=== PATIENT | male | born 1950 | race Caucasian/White ===

== ENCOUNTER → 2020-03-25 15:47 | Outpatient (CLI) | payer MEDICARE, OTHER, SELFPAY ==
[2020-03-25 16:50] LABS: Add Manual Diff / Slide Review NO; Basophils Absolute Auto 100 /uL (0-100); Basophils Percent Auto 1.4 % (0-2); Eosinophils Absolute Auto 100 /uL (0-450); Eosinophils Percent Auto 1.8 % (2-4); Hematocrit 40.9 % (41-53); Hemoglobin 13.8 g/dL (13.5-17.5); Lymphocytes Absolute Auto 1600 /uL (1100-4500); Lymphocytes Percent Auto 28.7 % (25-40); Mean Corpuscular HGB Conc 33.8 % (30-36); Mean Corpuscular Volume 88.8 fL (80-100); Monocytes Absolute Auto 300 /uL (0-900); Monocytes Percent Auto 5.6 % (3-14); Neutrophils Absolute Auto 3400 /uL (1500-7000); Neutrophils Percent Auto 62.5 % (50-75); Platelet Count 174 X10^3/uL (150-400); Red Blood Cell Count 4.61 X10^6/uL (4.5-5.9); Red Cell Distribution Width 16.5 % (11.6-14.8); White Blood Cell Count 5.4 X10^3/uL (4.5-11.0)
[2020-03-25 17:22] LABS: Carbon Dioxide 28 mmol/L (22-32); Chloride 102 mmol/L (98-107); HEMOLYSIS < 15 (0-50); Potassium 4.2 mmol/L (3.4-5.1); Sodium 136 mmol/L (137-145)
== END ==
PROVIDERS: PCP Family Medicine; Referring Provider Orthopaedic Surgery; Visit Provider Orthopaedic Surgery
DX: Z01.818 Encounter for other preprocedural examination (principal); Z01.812 Encounter for preprocedural laboratory examination
CPT/HCPCS: 36415; 80051; 85025; 93005

== ENCOUNTER → 2020-04-19 14:07 | Outpatient (CLI) | payer MEDICARE, OTHER, SELFPAY ==
[2020-04-20 07:53] LABS: COVID19 Sendout Not Detected (Not Detect)
== END ==
PROVIDERS: PCP Family Medicine; Visit Provider Physician Assistant
DX: Z01.818 Encounter for other preprocedural examination (principal)
CPT/HCPCS: 87635

== ENCOUNTER 2020-04-22 08:38 | Day surgery (SDC) | payer MEDICARE, OTHER, SELFPAY ==
[2020-04-17 08:50] VITALS: BMI 22.4
[2020-04-22] VITALS (18 sets, daily range): BP systolic 75–122; BP diastolic 54–85; PULSE 40–60; RESP 10–16; TEMP 35.7–36.5; O2SAT 97–100; BMI 22.4
[2020-04-22] MEDS: LACTATED RINGERS 1,000 ML 42 ML IV (09:48)
--- NOTE | 2020-04-22 10:14 | DI.RAD.S_ITS ---
PROCEDURE: XR PELVIS 1-2V INDICATIONS: POST OPERATIVE TOTAL HIP TECHNIQUE: 1 view of the lower pelvis acquired. COMPARISON: None. FINDINGS: Bones: Patient is status post total right hip arthroplasty, with hardware components in expected positions. The hip joint appears congruent. The visualized bony structures appear intact. Soft tissues: Overlying postoperative changes are noted. No suspicious soft tissue densities. IMPRESSION: Expected immediate postoperative appearance, status post total right hip arthroplasty. Dictated by: Ludwin Cobian M.D. on 04/22/2020 at 12:40 Approved by: Ludwin Cobian M.D. on 04/22/2020 at 12:41
--- NOTE | 2020-04-22 10:18 | PM.HP.1 ---
History of Present Illness History of Present Illness Date Patient Seen: 04/22/20 Time Patient Seen: 10:18 Chief complaint: Right Total Hip Arthroplasty Narrative: 69-year-old male admitted for elective right total hip arthroplasty. Patient History Medical History Elevated LDL cholesterol level (Acute) Surgical History History of arthroscopy of left shoulder (Acute 2018) History of vasectomy (1990) Family & Social History Social History: household members spouse Prior Living Arrangements House Safety & Behavioral: Feels Safe in Current Yes Environment Been Physically Hurt or No Threatened By a Person Suicidal Ideation Description None Suicide Plan Description No Plan Tobacco & Substance use: Tobacco type cigarettes Smoking Status Former smoker alcohol intake former Substance Use Type does not use Meds Home Medications and Allergies Home Medications Medication Instructions Recorded Confirmed Type No Known Home Medications 04/17/20 04/17/20 History Allergies Allergy/AdvReac Type Severity Reaction Status Date / Time aspirin [ASPIRIN] AdvReac Mild Increases Verified 04/22/20 09:21 fever. Review of Systems Review of Systems ROS: Yes All systems reviewed with the patient and are negative except as otherwise documented Exam Vital Signs (past 8 hours): - 04/22/20 09:31 Temperature 97.6 F Pulse Rate 52 L Respiratory Rate 16 Blood Pressure 122/85 Pulse Oximetry 100 Oxygen Delivery Method Room Air Narrative Exam Narrative: Patient is awake alert oriented and conversant. Afebrile and vital signs are stable. HEENT Normocephalic atraumatic Lungs clear to auscultation Heart regular rate rhythm Abdomen benign Extremities benign with the exception of right lower extremity with limited hip range of motion and pain on extremes of motion. Neurovascular examination is intact. Assessment & Plan Assessment & Plan narrative: 69-year-old male with severe right hip DJD. Plan right total hip arthroplasty. Informed consent obtained. COVID-19 COVID-19 status: Negative Result date/Date tested (Pos, Neg/Pending): 04/19/20
--- NOTE | 2020-04-22 10:19 | PM.PREOP ---
Pre-operative Note COVID-19 COVID-19 status: Negative Result date/Date tested (Pos, Neg/Pending): 04/19/20 Interval Note History & Physical reviewed/Exam performed by Physician: Yes Changes to H&P: No
[2020-04-22] MEDS: CEFAZOLIN 2 GM/100 ML FROZ.PIGGY IV ×2 (10:40→19:14)
--- NOTE | 2020-04-22 11:11 | SUR.OPER ---
Lateral on padded OR bed, head on pillow, gel axillary roll in place, bottom leg bent with gel pad under knee to foot, upper leg straight and supported with pillows. Upper arm supported by pillows and secured over bottom arm to padded arm board. Safety belt at hip, tape over blanket lower legs.
[2020-04-22] MEDS: TRANEXAMIC ACID 1,000 MG VIAL 2000 MG INJ ×2 (11:18→11:57)
[2020-04-22] MEDS: ROPIVACAINE 0.5% PF 20ML 60 ML, MORPHINE 4 MG, KETOROLAC 30 MG INJ (11:22)
--- NOTE | 2020-04-22 12:18 | P.OP_ITS ---
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 The patient has pain with activities and at rest, limited ambulation and activity tolerance, difficulties with ADLs, and failure of conservative treatment. We have discussed the nature of condition, treatment options, risks and benefits, and patient elects to proceed with total hip arthroplasty and gives informed consent. Surgeon: Clifton Mac Director Of Search Engine Marketing: Aayush Ridley Anesthesia Type: General and Spinal Operative Notes Closure Type: primary Specimen(s): none sent Prosthetic devices, grafts, tissues, transplants, or devices: Acetabulum: Zepeda and Nephew R3 acetabular component size 54 mm Femoral component: Zepeda and Nephew Anthology stem size 6 with standard offset Femoral head: 36 mm + 0 Oxinium Estimated Blood Loss (mL): 200 Blood products transfused: none Procedure in detail: After satisfaction induction of anesthetic, and administration of IV antibiotics, the patient was positioned in the lateral decubitus position with all bony prominences well padded and pelvic position secured using a hip hair clipper power positioning device. Right hip and lower extremity prepped and draped in the usual sterile fashion, 1st dose of intravenous tranexamic acid was administered, then a longitudinal incision was created centered over the greater trochanter and carried sharply through the skin and subcutaneous tissues down to the fascia kody which was divided longitudinally and retracted with a Charnley retractor. External rotators visualize, cut, tagged, and retracted posteriorly, then the capsule was cut in a T-type fashion with the corners tagged and retracted. Hip was dislocated and femoral neck cut made according to preoperative templating. Acetabular retractors then placed, and the acetabular labrum and osteophytes were excised. The acetabulum was then sequentially reamed to 53 mm with an excellent circumferential ream and fit with the trial. The trial component was removed and a permanent size 54 mm Zepeda and Nephew R3 acetabular component was selected, positioned, and impacted with satisfactory position and fixation achieved. Permanent liner was then inserted with the elevated lip directed posteriorly. Soft tissue then removed off the lateral femoral neck in the lateral neck was entered using a box osteotome. T- handled reamers placed down the canal followed by sequential broaching to 6 with the final broach left in place for trial reduction which demonstrated excellent leg length, range of motion, and stability characteristics with a 36 mm +0 trial ball. The trial and broach were removed, and a permanent size 6 Zepeda and Nephew Anthology stem was selected and inserted with excellent position and fixation achieved. Another trial reduction yielded the above characteristics so the trial ball was exchanged for a permanent 36 mm +0 Oxinium ball. The hip was irrigated and reduced and excellent leg length range of motion and stability characteristics were achieved and maintained. Periarticular tissues were infiltrated with ropivacaine, Toradol, and morphine. The hip was copiously irrigated, and the capsule repaired with #2 Ethibond, and the piriformis was repaired back to the greater trochanter with the same. Fascia kody closed with interrupted #1 Ethibond sutures, and the subcutaneous tissues were closed in 2 layers of 0 Vicryl and 2 0 Vicryl. Skin was closed with adrienne and sterile dressings applied. Second dose of tranexamic acid was administered intravenously, and the anesthetic was terminated. Complications: none Post-operative Condition: stable Disposition: PACU Plan for aftercare: Patient will be admitted to the acute care askew, and anticipate discharge on postop day 1 with follow-up in office in 10-14 days. Outpatient physical therapy will be arranged and patient will continue to obs erve posterior hip precautions. Patient will continue use of aspirin postoperatively for DVT prophylaxis..
[2020-04-22] MEDS: ACETAMINOPHEN 325 MG TABLET 650 MG PO ×2 (15:09→21:04)
--- NOTE | 2020-04-22 15:36 | PC.NURSE ---
Patient arrived from PACU to room 214, oriented to room and call light. VSS, denies pain. Bulky dressing to right hip CDI without drainage or bleeding noted. Calf scd's in place. Urinal and call light placed within reach.
--- NOTE | 2020-04-22 15:38 | PT-IP ANOTE ---
Pt arrived AC unit approx at 1300. Met up with pt and his and beside. Pt has low blood pressure and HR since surgery and his R leg is stilly numb and weak. Provided post op booklet to pt. Will attempt PT in the morning tomorrow.
[2020-04-22] MEDS: DOCUSATE 100 MG CAPSULE PO (21:04)
[2020-04-22] MEDS: ASPIRIN EC 81 MG TABLET PO (21:04)
[2020-04-23] VITALS: BP 105/64; PULSE 63; RESP 16; TEMP 37.2; O2SAT 97
[2020-04-23] MEDS: CEFAZOLIN 2 GM/100 ML FROZ.PIGGY IV (03:22)
[2020-04-23 05:00] VITALS: BP 117/56; PULSE 65; RESP 16; TEMP 36.7; O2SAT 99
[2020-04-23 06:35] LABS: Hematocrit 36.2 % (41-53); Hemoglobin 12.1 g/dL (13.5-17.5)
[2020-04-23] MEDS: ACETAMINOPHEN 325 MG TABLET 650 MG PO ×2 (06:49→12:52)
[2020-04-23 08:18] VITALS: BP 110/65; PULSE 56; RESP 16; TEMP 36.8; O2SAT 97
[2020-04-23 09:45] VITALS: BP 103/64; PULSE 57
[2020-04-23] MEDS: ASPIRIN EC 81 MG TABLET PO (09:57)
[2020-04-23] MEDS: DOCUSATE 100 MG CAPSULE PO (09:57)
--- NOTE | 2020-04-23 10:00 | PT.IIE ---
Current Diagnoses Unilateral primary osteoarthritis, right hip (04/22/20) Surgery Performed Operation Date: 04/22/20 10:45 Actual Procedures p Total Hip Arthroplasty(Right) - Clifton Mac MD Surgical History (Last Reviewed 04/22/20 @ 10:18 by Clifton Mac MD) History of arthroscopy of left shoulder (Acute 2018) History of vasectomy (1990) Medical History (Last Reviewed 04/22/20 @ 10:18 by Clifton Mac MD) Elevated LDL cholesterol level (Acute) Physical Therapy Inpatient Evaluation/Re-Eval M1 PT/OT-IP Prior Functional Status Start: 04/23/20 08:22 Freq: NEEDED Status: Active Protocol: Document 04/23/20 09:40 AW (Rec: 04/23/20 09:44 AW [email or web address]) Medical Review Prior Functional Status Medical History Reviewed Yes Communication WNL. Pt is an. effective verbal communicator. 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 M2 PT-IP Current Condition Start: 04/23/20 08:22 Freq: NEEDED Status: Active Protocol: Document 04/23/20 09:40 AW (Rec: 04/23/20 09:59 AW [email or web address]) Physical Therapy Current Condition Current Condition Evaluation Date 04/23/20 Treatment Diagnosis R ADRIANA with posterior approach; difficulty in walking Onset Date 04/22/20 Precautions Posterior Hip Precautions No Hip Flexion > 90 degrees,No Hip Internal Rotation,No Hip Adduction Other Precautions low BP at baseline Weight Bearing Status Weight Bearing Status Weight Bear as Tolerated M3 PT-IP Subjective Start: 04/23/20 08:22 Freq: NEEDED Status: Active Protocol: Document 04/23/20 09:40 AW (Rec: 04/23/20 09:59 AW [email or web address]) Subjective Physical Therapy Visit Type Type Initial Evaluation Visit Start Time 08:40 Visit Stop Time 09:25 Total Visit Minutes 45 Number of SKI BASE TRIMMER Visits 0 Physical Therapy Visit Comments Patient Comments Pt is willing to participate with PT Patient Goals To go home at discharge Therapy Pain Assessment Pain When Pain Assessed During Mobility Pain Present Pain Present Pain Reported Location right hip Intensity 3 Pain Management Techniques Apply Cold,Re-positioning, Timing of Activity with Medications M4 PT-IP Mobility and Gait Start: 04/23/20 08:22 Freq: NEEDED Status: Active Protocol: Document 04/23/20 09:40 AW (Rec: 04/23/20 09:59 AW [email or web address]) PT-Bed Mobility Assessment Supine to Sit Supine to Sit Standby Assistance Sit to Supine Sit to Supine Contact Guard Assistance Scooting Scooting to Edge of Bed Standby Assistance PT-Transfer Assessment Sit to and From Stand Sit to and from Stand Standby Assistance,Use of Upper Extremities Equipment Transfer Assistive Device Gait Belt,Front Wheeled Walker Orthotic/Prosthetic Devices or Brace: No Transfers Transfer Destination Bed,Chair Transfer Technique pt ambulated with FWW Transfer Ability Level of Assist Standby Assistance,Use of Upper Extremities Comments Mobility Comments Pt completed supine to sit SBA with good attention to hip precautions. He was able to sit EOB for assessment and then stood using FWW SBA and cues for R RE placement in order to maintain precautions. BP standing [id number]/74 HR 68 which was consistent with last supine pressure in chart. Pt ambulated in the halls with FWW SBA and was able to correct posture and step length discrepancy in response to minimal cueing. Pt completed stair training and ambulated back to the room SBA with posture degradation noted during last 50 feet. Pt denied lightheadedness until transfer to chair at which point pt appeared pale, cold, and diaphoretic. BP was 68/36 HR 50. Pt was reclined maximally in the chair with BP 70/43 HR 40 after two minutes . RN was alerted. RN assisted PT to get pt back to bed in trendelenberg position CGA. BP after two minutes inverted was 99/57 HR 57. Pt was repositioned with call light and all needs within reach, his arriving to visit. Bed alarm was armed for safety . Gait Assessment Gait Gait Assistance Required: Standby Assistance Distance (Feet) 175 Able to Maintain Weight Bearing Status Yes During Gait Assistive Devices Assistive Device Gait Belt,Front Wheeled Walker Orthotic/Prosthetic Devices or Brace: No Gait Deviations General Gait Pattern Antalgic,Decreased Stride Length,Decreased Feet Clearance,Flexed Trunk,Step-to Gait Factors Limiting Gait Function Factors Limiting Gait Function Decreased Activity Tolerance, Decreased Strength,Limited Range of Motion,Pain,Poor Balance Comments Gait Comments See mobility comments for details. Stair Climbing Assessment Evaluation Level of Assist On Stairs Standby Assistance Devices Stair Climbing Assistive Devices Left Railing,Right Railing Technique/Endurance Stair Climbing Direction Ascend and Descend Stair Climbing Technique Step to Step Number of Steps Climbed 3 Query Text: Stair Climbing Set # Repetitions (reps) 1 Comments Stair Climbing Comments After brief education on stair management, pt used B rails as he will at home and completed a set of stairs SBA with good patterning and no cues required. PT-Balance Assessment Sitting Balance and Reactions Static Sitting Balance Ability Normal Dynamic Sitting Balance Ability Normal Standing Balance and Reactions Static Standing Balance Ability Good Dynamic Standing Balance Ability Good Device Used FWW M5 PT-IP Objective Assessments Start: 04/23/20 08:22 Freq: NEEDED Status: Active Protocol: Document 04/23/20 09:40 AW (Rec: 04/23/20 09:59 AW [email or web address]) Orientation Orientation/Cognition Level of Alertness Alert Orientation Name,Day of Week,Place, Situation Language Function Ability No Deficits Noted Safety Awareness Understands Safety Issues Memory Description No Deficits Noted Gross Range of Motion Lower Extremity ROM Assessment Right Impaired Strength Upper Extremity Strength Assessment Right Impaired Lower Extremity Strength Assessment Right Impaired Comments Strength Comments L LE grossly 5/5 Coordination Assessment Gross Coordination Gross Coordination WNL Sensation Assessment Sensation Gross Sensation WNL Muscle Tone Muscle Tone WNL Yes M6 PT-IP Treatment Start: 04/23/20 08:22 Freq: NEEDED Status: Active Protocol: Document 04/23/20 09:40 AW (Rec: 04/23/20 09:59 AW [email or web address]) Physical Therapy Treatment Exercises Exercises Ankle Pumps,Gluteal Sets,Quad Sets,Heel Slides,Supine Hip Abduction Education Education Provided Precautions,Weight Bearing Status,Post-Op Packet,Safety Other Treatments Other Treatment Performed Provided education on role of PT, plan of care, weightbearing status, posterior hip precautions, and safe use of FWW. M7 PT-IP Assessment and Plan Start: 04/23/20 08:22 Freq: NEEDED Status: Active Protocol: Document 04/23/20 09:40 AW (Rec: 04/23/20 09:59 AW [email or web address]) PT Summary Assessment and Plan Potential Rehabilitation Potential Excellent Status of Condition at Evaluation Evolving Summary Impairments Pain,ROM,Strength,Balance,Bed Mobility,Transfers,Gait, Activity Tolerance Assessment Summary Josh is a 69 yo man seen for PT evaluation on POD 1 following R ADRIANA with posterior approach. At baseline, he is independent in all regards. On evaluation, he required SBA for all mobility, including ambulation 175' x 2 with FWW and stairs. Pt experienced a hypotensive episode at the end of the assessment and had to be assisted back to bed. BP recovered within 5 minutes. PT anticipates pt will be safe to discharge to home with spouse assist once medically cleared. Pt is encouraged to set up outpatient PT as soon as possible. PT also recommends a tub transfer bench to assist with bathing. Goals Bed Mobility Goal Standby Assistance Transfer Goal Standby Assistance Gait Goal Standby Assistance Gait Distance 200 Other Goals - up/down 4 steps with B rails SBA Days to Meet Goals 1 Frequency of Treatment Frequency Of Treatment Twice a Day Treatment Plan Physical Therapy Treatment Plan Bed Mobility Training,Transfer Training,Gait Training, Therapeutic Exercise,Balance Retraining,Post Op Education, Discharge Planning,Hot or Cold Pack Other Recommendations and Next Treatment monitor VS; progress gait Focus distance; pt already cleared stairs but may request additional training Recommendations To Nursing Amount of Assist Needed 1 Person Assist Discharge Recommendations PT Discharge Recommendations Home with Assistance, Outpatient PT Transportation Needs at Discharge Private Vehicle
[2020-04-23] MEDS: SODIUM CHLORIDE 0.9% 500 ML 1000 ML IV (10:22)
[2020-04-23 10:36] VITALS: BP 112/61; PULSE 56
--- NOTE | 2020-04-23 11:14 | CM.DPC ---
Addendum entered by Madelaine Vaughn R.N. 04/23/20 11:20: Correction: I is Yan D/C plan: Home with outpatient physical therapy. Oncology note entered in error. Original Note: Brief D/C Assessment: EMR reviewed: Patient is a 69 yr old male who is post op day one RTH and is being treated by Dr. Camargo. CM/Rn met with patient and at the bedside and explained role. Patient was alert and oriented x3 at time of CM visit. Patient was recovering in [place] from a bout of low BP after his PT session. Pt. was feeling better at time of my assessment and BP had returned to his baseline. Patient lives in [place] with . Patient stated his plan is to go to home with and will persue OP PT in [place]. Patient currently is Independent at home with toileting grooming and eating and driving. Discussed with pt. and the importance of shower chair/transfer bench since he has a hx of low BP, he had this bout of low BP after his PT session and a warm shower will also lower his BP. They verbalized understanding and will get shower devices immediately for safety. I: [employer] and [facility] Plan: D/C plan not determined yet pending MD conversation with oncology on monday. Hospice and home vs SNF.
[2020-04-23 11:54] VITALS: BP 105/63; PULSE 58; RESP 16; TEMP 36.9; O2SAT 99
--- NOTE | 2020-04-23 13:17 | PT.IPTN ---
Current Diagnoses Unilateral primary osteoarthritis, right hip (04/22/20) Surgery Performed Operation Date: 04/22/20 10:45 Actual Procedures p Total Hip Arthroplasty(Right) - Clifton Mac MD Physical Therapy Treatment Note M2 PT-IP Current Condition Start: 04/23/20 08:22 Freq: NEEDED Status: Active Protocol: Document 04/23/20 09:40 AW (Rec: 04/23/20 09:59 AW [email or web address]) Physical Therapy Current Condition Current Condition Evaluation Date 04/23/20 Treatment Diagnosis R ADRIANA with posterior approach; difficulty in walking Onset Date 04/22/20 Precautions Posterior Hip Precautions No Hip Flexion > 90 degrees,No Hip Internal Rotation,No Hip Adduction Other Precautions low BP at baseline Weight Bearing Status Weight Bearing Status Weight Bear as Tolerated M3 PT-IP Subjective Start: 04/23/20 08:22 Freq: NEEDED Status: Active Protocol: Document 04/23/20 13:08 AW (Rec: 04/23/20 13:16 AW [email or web address]) Subjective Physical Therapy Visit Type Type Treatment Note Visit Start Time 12:49 Visit Stop Time 13:06 Total Visit Minutes 17 Number of CENTRIFUGAL OPERATOR Visits 0 Physical Therapy Visit Comments Patient Comments Pt is feeling well and ready to work with PT Therapy Pain Assessment Pain When Pain Assessed During Mobility Pain Present Pain Present Pain Reported Location right hip Intensity 2 Pain Management Techniques Apply Cold,Timing of Activity with Medications M4 PT-IP Mobility and Gait Start: 04/23/20 08:22 Freq: NEEDED Status: Active Protocol: Document 04/23/20 13:08 AW (Rec: 04/23/20 13:16 AW [email or web address]) PT-Bed Mobility Assessment Supine to Sit Supine to Sit Standby Assistance Scooting Scooting to Edge of Bed Standby Assistance PT-Transfer Assessment Sit to and From Stand Sit to and from Stand Standby Assistance Equipment Transfer Assistive Device Gait Belt,Front Wheeled Walker Orthotic/Prosthetic Devices or Brace: No Transfers Transfer Destination Bed Transfer Technique pt ambulated with FWW Transfer Ability Level of Assist Standby Assistance,Use of Upper Extremities Comments Mobility Comments Pt completed all mobility SBA including gait with FWW. VS as follows: supine - 117/73 HR 66 sitting - 134/86 HR 69 standing - 128/90 HR 72 after ambulation - 140/90 HR 72 Gait Assessment Gait Gait Assistance Required: Standby Assistance Distance (Feet) 120 Able to Maintain Weight Bearing Status Yes During Gait Assistive Devices Assistive Device Gait Belt,Front Wheeled Walker Orthotic/Prosthetic Devices or Brace: No Gait Deviations General Gait Pattern Antalgic,Decreased Stride Length,Decreased Feet Clearance,Flexed Trunk,Step-to Gait Factors Limiting Gait Function Factors Limiting Gait Function Decreased Activity Tolerance, Decreased Strength,Limited Range of Motion,Pain,Poor Balance Comments Gait Comments Pt able to improve weightbearing R LE this session with more equal stance time during gait. Stair Climbing Assessment Comments Stair Climbing Comments Pt cleared stairs this AM. PT-Balance Assessment Sitting Balance and Reactions Static Sitting Balance Ability Normal Dynamic Sitting Balance Ability Normal Standing Balance and Reactions Static Standing Balance Ability Good Dynamic Standing Balance Ability Good Device Used FWW M5 PT-IP Objective Assessments Start: 04/23/20 08:22 Freq: NEEDED Status: Active Protocol: Document 04/23/20 09:40 AW (Rec: 04/23/20 09:59 AW [email or web address]) Orientation Orientation/Cognition Level of Alertness Alert Orientation Name,Day of Week,Place, Situation Language Function Ability No Deficits Noted Safety Awareness Understands Safety Issues Memory Description No Deficits Noted Gross Range of Motion Lower Extremity ROM Assessment Right Impaired Strength Upper Extremity Strength Assessment Right Impaired Lower Extremity Strength Assessment Right Impaired Comments Strength Comments L LE grossly 5/5 Coordination Assessment Gross Coordination Gross Coordination WNL Sensation Assessment Sensation Gross Sensation WNL Muscle Tone Muscle Tone WNL Yes M6 PT-IP Treatment Start: 04/23/20 08:22 Freq: NEEDED Status: Active Protocol: Document 04/23/20 13:08 AW (Rec: 04/23/20 13:16 AW [id number]) Physical Therapy Treatment Education Education Provided Precautions,Safety Other Treatments Other Treatment Performed Pt's was able to provide appropriate standby assist during transfers. She was able to teach back posterior precautions and stair techniques. M7 PT-IP Assessment and Plan Start: 04/23/20 08:22 Freq: NEEDED Status: Active Protocol: Document 04/23/20 13:08 AW (Rec: 04/23/20 13:16 AW [id number]) PT Summary Assessment and Plan Potential Rehabilitation Potential Excellent Status of Condition at Evaluation Stable Summary Impairments Pain,ROM,Strength,Balance,Bed Mobility,Transfers,Gait, Activity Tolerance Progress Towards Goals Progressing Toward Goals,Safe For Discharge Assessment Summary Pt completed all mobility this PM with normal hemodynamic response to change in position and activity. His will be able to provide appropriate assist at home. Pt was educated to continue using FWW at least until seen by outpatient PT. Pt is safe to discharge. Goals Bed Mobility Goal Standby Assistance Transfer Goal Standby Assistance Gait Goal Standby Assistance Gait Distance 200 Other Goals - up/down 4 steps with B rails SBA Days to Meet Goals 1 Frequency of Treatment Frequency Of Treatment Discharge Recommendations To Nursing Amount of Assist Needed Standby Assistance Discharge Recommendations PT Discharge Recommendations Home with Assistance, Outpatient PT Transportation Needs at Discharge Private Vehicle
--- NOTE | 2020-04-23 13:18 | PC.NURSE ---
Day shift: Talked with ARSEN gao this am about Pt having low BP after working with PT.. Gave 500ml bolus per MD (ARSEN Gao). Pt worked with PT this afternoon and no s/s of lightheadedness. BP remained WNL. Talked with Pt and his spouse and they do want to go home now. They report feeling safe and good about going today. Will d/c Pt now per protocol. Cleared by PT (Kamille) as well.
--- NOTE | 2020-04-23 13:35 | PC.NURSE ---
Day shift: Pt left unit at approx [phone]. Paperwork signed and all questions amnswered. Dressing remains CDI. Pt has all personal belongings. Pt has MD Script.
== END 2020-04-23 13:37 | disposition home or self-care (01) ==
LOC: AC 04-23 07:40 → OR 04-23 14:30
PROVIDERS: PCP Family Medicine; Referring Provider Family Medicine; Visit Provider Orthopaedic Surgery
PROC: 0SR90JZ Replacement of Right Hip Joint with Synthetic Substitute, Open Approach (ICD-10-PCS; CPT 27130; principal; 2020-04-22 10:45)
DX: M16.11 Unilateral primary osteoarthritis, right hip (principal); E78.00 Pure hypercholesterolemia, unspecified
CPT/HCPCS: 27130; 36415; 36592; 72170; 85014; 85018; 97110; 97116; 97161; C1776; J0690; J1200; J1885; J2250; J2270; J2704; J2795; J3010